=== PATIENT | male | born 1950 | race Caucasian/White ===

== ENCOUNTER → 2018-05-17 | Outpatient (CLI) | payer MEDICARE, OTHER ==
[~2018-05-17] MED LIST: ADULT LOW DOSE81 MG PO; APAP650 PO; CARDURA4 MG PO; CELEXA 20 MG TA20 M1; CHLORHEXIDINE FL1 ML; CIPRO500 MG PO; FLAXSEED OIL1000 MG PO; FLOMAX0.4 MG PO; GLYBURIDE 3 MG M3 M1 PO; HUMALOG100 UNIT/1 SUBQ; IBUPROFEN200 M2 PO; JANUMET 50-5001 EACH PO; LEVEMIR SUBQ; LIPITOR20 MG PO; LISINOPRIL10 MG PO; MELATONIN3 MG PO; MULTIVITAMINS PO; NAPROSYN500 MG PO; NORCO 5-325 TA1 EACH PO; PERCOCET 7.5-31 EACH PO; ZOFRAN ODT4 MG PO
== END ==
LOC: M.RAD 07:35
DX: M47.812 Spondylosis without myelopathy or radiculopathy, cervical region (principal); M48.02 Spinal stenosis, cervical region

== ENCOUNTER → 2020-10-10 | Outpatient (CLI) | payer MEDICARE, OTHER | LOC: M.ULTRA 09:22 | PROVIDERS: ATTEND Family Medicine | DX: N43.3 Hydrocele, unspecified (principal) ==

== ENCOUNTER → 2020-11-14 | Outpatient (CLI) | payer MEDICARE, OTHER | LOC: M.CT 11:26 | PROVIDERS: ATTEND Nurse Practitioner Adult Health | DX: N20.0 Calculus of kidney (principal); I86.1 Scrotal varices; K80.20 Calculus of gallbladder without cholecystitis without obstruction ==